=== PATIENT | male | born 1990 | race Hispanic/Latino ===

== ENCOUNTER 2017-06-22 20:00 | Emergency (ER) | payer OTHER ==
[2017-06-22 20:08] VITALS: RESP 18
[2017-06-22] MEDS ORDERED: Sodium Chloride 0.9% 1,000 ML IV STA (20:35)
--- NOTE | 2017-06-22 20:38 | ED PDOC ---
HPI: CCC, URI, Sore Throat Time Seen by Provider: 06/22/17 20:13 Chief Complaint (Nursing): ENT Problem Chief Complaint (Provider): throat pain History Per: Patient History/Exam Limitations: no limitations Onset/Duration Of Symptoms: Days (2) Current Symptoms Are (Timing): Still Present Location Of Pain: Throat Associated Symptoms: Sore Throat Additional History Per: Patient Additional Complaint(s): 26 y/o male presents with throat pain x 2 days. Patient seen at [facility] today and tested negative for strep, prescribed Penicillin and felt no relief after two doses. Denies fever, ear pain, nasal congestion/discharge, cough, difficulty swallowing, chest pain, shortness of breath, palpitations, recent travel, sick contacts. Past Medical History Reviewed: Historical Data, Nursing Documentation, Vital Signs Vital Signs: Last Vital Signs Temp 98.2 F 06/23/17 00:20 Pulse 91 H 06/23/17 00:20 Resp 18 06/23/17 00:20 BP 118/68 06/23/17 00:20 Pulse Ox 98 06/23/17 00:20 - Medical History PMH: No Chronic Diseases - Surgical History Surgical History: No Surg Hx - Family History Family History: States: Unknown Family Hx - Living Arrangements Living Arrangements: With Family - Home Medications Home Medications: Ambulatory Orders Medication Instructions Recorded Clindamycin [Cleocin] 300 mg PO Q6 #39 cap 06/23/17 Ibuprofen [Motrin Tab] 800 mg PO Q8 PRN #20 tab 06/23/17 - Allergies Allergies/Adverse Reactions: Allergies Allergy/AdvReac Type Severity Reaction Status Date / Time No Known Allergies Allergy Verified 06/22/17 20:05 Review of Systems ROS Statement: Except As Marked, All Systems Reviewed And Found Negative ENT: Positive for: Throat Pain Physical Exam - Reviewed Nursing Documentation Reviewed: Yes Vital Signs Reviewed: Yes - Physical Exam Appears: Positive for: Well, Non-toxic, No Acute Distress Head Exam: Positive for: ATRAUMATIC, NORMAL INSPECTION, NORMOCEPHALIC Skin: Positive for: Normal Color Eye Exam: Positive for: Normal appearance ENT: Positive for: Pharyngeal Erythema, Tonsillar Swelling (b/l), Other (uvula midline, airway patent) Cardiovascular/Chest: Positive for: Regular Rate, Rhythm Respiratory: Positive for: Normal Breath Sounds Gastrointestinal/Abdominal: Positive for: Normal Exam Back: Positive for: Normal Inspection Extremity: Positive for: Normal ROM Lymphatic: Positive for: Adenopathy (submandibular, subtonsillar glands b/l) - Laboratory Results Result Diagrams: 06/22/17 20:40 06/22/17 21:00 - ECG O2 Sat by Pulse Oximetry: 99 - Progress ED Course And Treament: labs, rapid strep, mono, IV decadron, IV toradol, CT ST neck EXAM: CT Neck With Intravenous Contrast EXAM DATE/TIME: Exam ordered 06/22/2017 10:39 PM CLINICAL HISTORY: 26 years old, male; Pain; Painful swallowing; Additional info: Fever, throat pain, difficulty swallowing TECHNIQUE: Axial computed tomography images of the neck with intravenous contrast. All CT scans at this facility use one or more dose reduction techniques, viz.: automated exposure control; ma/kV adjustment per patient size (including targeted exams where dose is matched to indication; i.e. head); or iterative reconstruction technique. Coronal and sagittal reformatted images were created and reviewed. CONTRAST: 85 mL of [id number] administered intravenously. COMPARISON: No relevant prior studies available. FINDINGS: Nasopharynx: Unremarkable. Oropharynx: There is enlargement of the tonsillar region bilaterally with adjacent stranding consistent with pharyngitis. No focal fluid collection to suggest an abscess. Larynx: Unremarkable. Normal epiglottis. Trachea: Unremarkable. Retropharyngeal space: Unremarkable. Submandibular/parotid glands: There is enhancement of the parotid and submandibular glands bilaterally suggesting adenitis. No focal fluid collections to suggest abscess. Thyroid: Unremarkable. No enlarged or calcified nodules. Bones/joints: No acute fracture. Soft tissues: Infiltration of the subcutaneous fat in the lower facial region extending into the neck anteriorly presumably financial service representative of cellulitis. Vasculature: No acute findings. Lymph nodes: Multiple enlarged lymph nodes in both sides of the neck are presumably inflammatory but nonspecific. Lung apices: Unremarkable as visualized. IMPRESSION: 1. There is enlargement of the tonsillar region bilaterally with adjacent stranding consistent with pharyngitis. No focal fluid collection to suggest an abscess. 2. There is enhancement of the parotid and submandibular glands bilaterally suggesting adenitis. No focal fluid collections to suggest abscess. 3. Multiple enlarged lymph nodes in both sides of the neck are presumably inflammatory but nonspecific. 4. Infiltration of the subcutaneous fat in the lower facial region extending into the neck anteriorly presumably financial service representative of cellulitis. On re-eval, patient feeling better. Case discussed with ED attending, will give IV clindamycin dose and d/c with rx for same. Patient educated on findings, discharged with rx clindamycin, ibuprofen. Advised follow up in 2 days. Return to ED for worsening/concerning symptoms. Disposition - Clinical Impression Clinical Impression: Pharyngitis, Tonsillitis, Lymphadenitis, Cellulitis - Patient ED Disposition Is Patient to be Admitted: No Counseled Patient/Family Regarding: Studies Performed, Diagnosis, Need For Followup, Rx Given - Disposition Disposition: Routine/Home Disposition Time: 01:20 Condition: IMPROVED Additional Instructions: Follow up in 2 days. Take medications as directed. Return to ED for worsening/concerning symptoms. Prescriptions: Clindamycin [Cleocin] 300 mg PO Q6 #39 cap Ibuprofen [Motrin Tab] 800 mg PO Q8 PRN #20 tab PRN Reason: Pain, Moderate (4-7) Instructions: Cellulitis (ED), Tonsillitis (ED), Pharyngitis (ED), Adenitis (ED ) Forms: [employer] ([place])
[2017-06-22 21:05] LABS: BASO # 0.1 K/uL (0.0-0.2); BASO % 0.3 % (0.0-2.0); EOS # 0.2 K/uL (0.0-0.7); HEMATOCRIT 47.8 % (35.0-51.0); LYMPH # 2.2 K/uL (1.0-4.3); LYMPH % 11.2 % (20.0-40.0); MEAN CELL VOLUME 87.9 fl (80.0-94.0); MEAN CORPUSCULAR HEMOGLOBIN 30.1 pg (27.0-31.0); MEAN CORPUSCULAR HGB CONC 34.2 g/dL (33.0-37.0); MEAN PLATELET VOLUME 7.1 fl (7.2-11.7); MONO # 2.2 K/uL (0.0-0.8); MONO % 11.2 % (0.0-10.0); NEUT # 14.9 K/uL (1.8-7.0); NEUT % 76.3 % (50.0-75.0); RED CELL DISTRIBUTION WIDTH 12.7 % (11.5-14.5); WHITE BLOOD COUNT 19.6 K/uL (4.8-10.8)
[2017-06-22 21:14] LABS: ALB/GLOB RATIO 1.4 (1.0-2.1); ALKALINE PHOSPHATASE 77 U/L (38-126); ALT/SGPT 46 U/L (21-72); AST/SGOT 27 U/L (17-59); BILIRUBIN,TOTAL 1.3 mg/dl (0.2-1.3); BLOOD UREA NITROGEN 9 mg/dl (9-20); CALCIUM 9.7 mg/dL (8.4-10.2); CARBON DIOXIDE 24 mmol/L (22-30); CHLORIDE 101 mmol/L (98-107); GFR AFRICAN-AMERICAN > 60; GLUCOSE,RANDOM 96 mg/dL (75-110); POTASSIUM 4.1 MMOL/L (3.6-5.0); SODIUM 137 mmol/l (132-148); TOTAL PROTEIN 7.9 G/DL (6.3-8.2)
[2017-06-22] MEDS ORDERED: Iohexol 300 100 ML IJ ONE (22:57)
[2017-06-22] MEDS ORDERED: Sodium Chloride 0.9% 50 ML IV ONE (22:58)
[2017-06-23] MEDS ORDERED: SODIUM CHLORIDE 0.9% IVPB STA (00:06)
[2017-06-23] MEDS ORDERED: CLINDAMYCIN IVPB STA (00:06)
[2017-06-23] MEDS ORDERED: Clindamycin 600 MG in Sodium Chloride 0.9% 100 ML IVPB STA (00:10)
[2017-06-23 00:21] VITALS: BP 118/68; PULSE 91; TEMP 98.2
[2017-06-23 01:36] VITALS: O2SAT 99
--- NOTE | 2017-06-23 07:40 | CT ---
PROCEDURE: CT NECK WITH CONTRAST HISTORY: fever, throat pain, difficulty swallowing COMPARISON: None TECHNIQUE: CT of the neck with intravenous contrast. Coronal and sagittal reformats generated. Intravenous contrast dose: 95 cc Omnipaque 300 Radiation dose: DLP 588.66 mGy-cm This CT exam was performed using one or more of the following dose reduction techniques: Automated exposure control, adjustment of the mA and/or kV according to patient size, and/or use of iterative reconstruction technique. FINDINGS: NASOPHARYNX: There is mild adenoidal hypertrophy. SUPRAHYOID NECK: There is mild enlargement of bilateral palatine tonsils and mild enlargement of the lingual tonsils. No CT evidence for peritonsillar abscess. The oral cavity, parapharyngeal space and retropharyngeal space. There is diffuse soft tissue swelling in the neck with subcutaneous fat stranding. INFRAHYOID NECK: Unremarkable larynx, hypopharynx, and supraglottic space. Vocal cords intact. MASS: None. GLANDS: There is mild enhancement in the parotid and submandibular glands with infiltration of the surrounding fat. Normal size thyroid gland, without nodule. LYMPH NODES: There are enlarged submental, submandibular and upper jugular chain lymph nodes, right larger than left. CERVICAL SPINE: No fracture or focal lesion. VASCULAR STRUCTURES: Within normal limits. OTHER FINDINGS: The visualized lungs are clear. IMPRESSION: 1. Findings are compatible with acute tonsillitis. No evidence of peritonsillar abscess. 2. Mild sialadenitis. 3. Reactive cervical chain lymphadenopathy. 4. Cellulitis in the soft tissues of the neck. A preliminary report was provided by [employer] services.
== END 2017-06-23 01:40 | disposition home or self-care (01) ==
LOC: H.ER 20:00
DX: J03.90 Acute tonsillitis, unspecified (principal); I88.9 Nonspecific lymphadenitis, unspecified; L03.221 Cellulitis of neck
CPT/HCPCS: 70491; 80053; 83605; 85025; 86308; 87040; 87070; 87430; 96360; 99282; J1100; J1885; J7040; Q9967